=== PATIENT | female | born 1990 | race Caucasian/White ===

== ENCOUNTER → 2024-01-17 13:36 | Outpatient (REF) | payer OTHER, SELFPAY | LOC: REG 13:36 | PROVIDERS: ATTENDING PHYSICIAN Obstetrics & Gynecology | DX: Z34.82 Encounter for supervision of other normal pregnancy, second trimester (principal) | CPT/HCPCS: 36415; 86850; 86900; 86901; J2790 ==

== ENCOUNTER 2024-04-18 03:56 | Inpatient (IN) | payer OTHER, SELFPAY ==
[2024-04-18 04:04] VITALS: BMI 27.3
[2024-04-18 04:38] VITALS: BP 131/85; BMI 27.3
[2024-04-18 04:45] LABS: % Basophils 0.7 % (0-2); % Eosinophils 1.3 % (0-6); % Immature Granulocytes 0.2 % (0-0.5); % Lymphocytes 21.3 % (20.5-51.1); % Monocytes 7.8 % (1.7-9.3); % Neutrophils 68.7 % (42.2-75.2); Absolute Basophils 0.1 10^3/uL (0-0.2); Absolute Eosinophils 0.1 10^3/uL (0-0.7); Absolute Lymphocytes 2.3 10^3/uL (1.2-3.4); Absolute Monocytes 0.8 10^3/uL (0.1-0.6); Absolute Neutrophils 7.4 10^3/uL (1.4-6.5); Hematocrit 30.4 % (37.0-47.0); Hemoglobin 10.3 g/dL (12.0-16.0); Mean Corp Hgb Conc. 33.9 g/dL (33.0-37.0); Mean Corpuscular Hgb 26.8 pg (27.0-31.0); Mean Platelet Volume 9.9 fL (7.4-10.4); Nucleated Red Blood Cells % 0 %; Platelet Count 226 10^3/uL (130-400); Red Blood Cell Count 3.85 10^6/uL (4.20-5.40); Red Cell Dist. Width 12.5 % (11.5-14.5); White Blood Cell Count 10.7 10^3/uL (4.8-10.8)
[2024-04-18] MEDS: SUBLIMAZE 100 MCG EPIDURAL (04:57)
[2024-04-18] MEDS: FENTANYL/BUPIVACAINE 100 EPIDURAL (04:57)
[2024-04-18] MEDS: LR 1000 IV (05:28)
[2024-04-18] MEDS: PITOCIN 30 UNITS/NSS 500 ML IV (10:22)
[2024-04-18] MEDS: METHERGINE INJECTION 0.200000000000000011 MG IM (10:59)
[2024-04-18] MEDS: HEMABATE 250 MCG IM (11:16)
[2024-04-18] MEDS: ZOFRAN 4 MG IV (12:34)
[2024-04-18] MEDS: TYLENOL 650 MG PO (20:23)
[2024-04-18] MEDS: MOTRIN 600 MG PO (23:06)
[2024-04-19 03:32] LABS: Hematocrit 28.9 % (37.0-47.0); Hemoglobin 10.1 g/dL (12.0-16.0)
[2024-04-19] MEDS: MOTRIN 600 MG PO (06:25)
[2024-04-19] MEDS: PRENATAL PLUS 1 TABLET PO (08:04)
[2024-04-21 15:43] LABS: Syphilis/T. pallidum Ab Reflex Negative (Negative)
== END 2024-04-19 12:33 | disposition home or self-care (01) | DRG 807 ==
LOC: LDRP 03:56
PROVIDERS: Obstetrics & Gynecology; ADMITTING PHYSICIAN Obstetrics & Gynecology
PROC: 10E0XZZ Delivery of Products of Conception, External Approach (ICD-10-PCS; 2024-04-18)
PROC: 0UQMXZZ Repair Vulva, External Approach (ICD-10-PCS; 2024-04-18)
DX: O48.0 Post-term pregnancy (principal); Z37.0 Single live birth; Z3A.40 40 weeks gestation of pregnancy; O70.0 First degree perineal laceration during delivery
CPT/HCPCS: 88307; 36415; 85014; 85018; 85025; 86780; 86850; 86870; 86900; 86901

== ENCOUNTER 2024-11-04 09:04 | Emergency (ER) | payer OTHER, SELFPAY ==
[2024-11-04 09:12] VITALS: BP 123/92
--- NOTE | 2024-11-04 09:39 | ED.GENMED ---
History of Present Illness
General
Chief Complaint: Headache
Source: patient
Exam Limitations: none
Time Seen by Provider: 11/04/24 09:20
Nursing documentation reviewed up to this point in time: agreed with
History of Present Illness
History of Present Illness:
34 yo female here for headaches, tingling/weakness LUE. States 10/19 developed fleeting shooting pains upper left scalp few times a day that left residual pressure top of head. Some relief with Advil. Had some lightheadedness intermittently the
week before headaches started. Symptoms off and on for a week, saw PCP [employer] and had out pt labs (has results with her).
Had no symptoms for 3 days then 3 days ago had 1-2 fleeting shooting pains with lingering head pressure and yesterday more frequent, more intense, now across top of head.
This a.m. left hand felt 'tingly' and when she went to lift her coffee cup left forearm felt 'weak.' These symptoms are there now.
She is in process of weaning her 7 month old.
[place] she may be dehydrated has been drinking plenty and taking electrolyte packets at times.
Denies N/V/D/C. Denies change in vision. Denies any recent injury. Denies neck pain.
Past History
Past History
ED Past Medical History: None
ED Past Surgical History: None
Social History
Tobacco: Non-smoker
Alcohol: Occasional
Personal:
Living: with family
Employment: Not employed
Review of Systems
Review of Systems
Allergies reviewed?: Yes
All Other Systems: ROS reviewed and negative except as documented in HPI and ROS
Constitutional: Denies fever or fatigue
Respiratory: Denies trouble breathing
Cardiac: Denies chest pain
ABD/GI: Denies abdominal pain, nausea, vomiting, diarrhea or anorexia
: Denies dysuria or difficulty voiding
Musculoskeletal: Reports no symptoms
Skin: Reports no symptoms
Neurological: Reports headache and other (left hand and forearm tingling and weakness); Denies dizzy
Phy Exam
Physical Exam
Physical Exam:
GENERAL: No acute distress. A&Ox3.
CONSTITUTIONAL: Afebrile.
HEAD: no facial pain to percussion, temples non tender, scalp nontender
EYES: PERRL, conjunctivae normal
Neck: Supple, nontender
ENMT: moist mucus membranes, Pharynx nl, TMs normal
RESPIRATORY: Regular respirations, nonlabored, lungs clear.
CARDIOVASCULAR: Regular rate and rhythm, no murmurs, no rubs.
GI: Soft, nontender, normal BS
MUSCULOSKELETAL: Moves with ease. Well perfused. Well perfused.
SKIN: Warm, dry, pink
PSYCH: Normal mood and affect. Well kept, interactive and appropriate
NEUROLOGIC: Awake, alert and oriented. No focal neurological deficits. CN 2-12 intact. Strength 5/5 throughout. Sensation intact all areas of face and scalp.
Course
Orders/Labs/Results
Orders:
Orders
11/04/24 09:16
Test Result ONCE
11/04/24 09:39
CT Head W/o Iv Contrast Urgent
Comment:
Reason For Exam: h/a left hand, forearm tingling
11/04/24 09:44
Ferritin Urgent
HCG, Serum Qualitative Screen Urgent
Vitamin B12 Urgent
Vitamin D, 25-OH Urgent
11/04/24 10:23
0.9% Sodium Chloride 500 ml [Nss] 500 ml IV BOLUS
Abnormal Lab Results
11/04/24
09:44
Vitamin D 25-Hydroxy 29.8 L ng/mL
(30-80)
11/04/24 09:16
11/04/24 09:16
Vital Signs
Initial and Last Documented VS:
Initial Vital Signs
Temp Pulse Resp BP Pulse Ox
98.2 F 81 16 123/92 98
11/04/24 09:12 11/04/24 09:12 11/04/24 09:12 11/04/24 09:12 11/04/24 09:12
Last Documented Vital Signs
Temp Pulse Resp BP Pulse Ox
98.2 F 71 16 121/73 98
11/04/24 09:12 11/04/24 11:19 11/04/24 11:19 11/04/24 11:19 11/04/24 11:19
MDM/Problems Addressed
Differential Diagnosis Includes:
cephalgia, cervical radiculopathy, trigeminal neuralgia
MDM/Problems Addressed:
34 yo female here for headaches, tingling/weakness LUE. States 10/19 developed fleeting shooting pains upper left scalp few times a day that left residual pressure top of head. Some relief with Advil. Had some lightheadedness intermittently the
week before headaches started. Symptoms off and on for a week, saw PCP [employer] and had out pt labs (has results with her).
Had no symptoms for 3 days then 3 days ago had 1-2 fleeting shooting pains with lingering head pressure and yesterday more frequent, more intense, now across top of head.
This a.m. left hand felt 'tingly' and when she went to lift her coffee cup left forearm felt 'weak.' These symptoms are there now.
She is in process of weaning her 7 month old.
[place] she may be dehydrated has been drinking plenty and taking electrolyte packets at times.
Denies N/V/D/C. Denies change in vision. Denies any recent injury. Denies neck pain.
Afebrile, NAD
Normal neuro exam. All cranial nn intact
PE unremarkable with subjective tingly feeling left hand and wrist, weak feeling left forearm. Strength equal throughout
Has been occurring too long to be prodrome of zoster
CMP, Mg++, CRP from out pt [facility] labs reviewed on her phone, no abnormalities, no need to repeat
Head CT normal
Ferritin, Vit B12, Vitamin D WNL
Pt reassured
Most likely left arm cervical radiculopathy
Rx for Prednisone 40 mg daily for 3 days sent to her pharmacy
Referred to Neuro if needed.
*Critical Care Note
Total Time (30-74mins, 75-104mins- exclusive of procedures): Not Applicable
ED Attending Note
-
Portions of this chart may have been created with voice recognition software.� Occasional wrong word or��sound alike� substitutions may have occurred due to the inherent limitations of voice recognition software.
Discharge Plan
Departure
Patient Disposition: Home (Routine Discharge)
Date of Disposition: 11/04/24
Time of Disposition: 11:06
Patient with high blood pressure during this ER visit?: No
Condition: Good
Discharge Problem:
Headache, Radiculopathy of arm
Instructions: Radiculopathy (DC), Headache, Adult ED
Prescriptions:
New
prednisone 20 mg tablet
40 mg PO DAILY Qty: 6 0RF
No Action
PNV cmb#95-ferrous fumarate-FA [] 1 EACH tablet
1 ea PO DAILY
ibuprofen 600 mg Tablet
600 mg PO Q6HPRN PRN (Reason: moderate pain/cramps) Qty: 0 0RF
Referrals:
Your, Primary provider [Other] - As needed
Joanne Dior MD [Active] - Next open appointment
UNKNOWN - PT DOES,NOT KNOW [Family Provider] -
Activity Restrictions/Additional Instructions:
As we discussed, your head CT is normal.
Your left arm symptoms may be originating in your neck (pinched or inflamed nerve)
I see nothing alarming in your exam.
Continue Ibuprofen 600 mg every 6 hours as needed since it seemed to have helped some.
I sent a prescription to your pharmacy for Prednisone 40 mg daily for 3 days to see if it helps both the head pain and the left arm symptoms.
See your primary care provider if symptoms persist beyond another 10 days.
Seek medical care immediately if symptoms worsen or you feel worse in any way.
I have provided you with the contact information for Neurology if your provider thinks you need neurology evaluation
Interventions
Interventions:
*Risk Screen - Suicide Last Done: 11/04/24 09:12
*General Assessment Last Done: 11/04/24 09:51
*Neglect/Abuse Screening Last Done: 11/04/24 09:12
ED- Fall Risk Assessment Last Done: 11/04/24 09:51
*Nursing Disposition Last Done: 11/04/24 11:21
ED- Neurological Assessment Last Done: 11/04/24 09:51
Discharge Date and Time
Discharge Date/Time: 11/04/24 11:23
Print Language: NEPALESE
[2024-11-04 10:12] LABS: HCG, Serum Qualitative Screen Negative
[2024-11-04 10:38] LABS: Vitamin D, 25-OH*** 29.8 ng/mL (30-80)
[2024-11-04 10:56] LABS: Ferritin 12.8 ng/ml (6.24-137)
[2024-11-04 11:12] LABS: Vitamin B12 783 pg/ml (239-931)
[2024-11-04 11:19] VITALS: BP 121/73
== END 2024-11-04 11:23 | disposition home or self-care (01) ==
LOC: EMR 09:04
PROVIDERS: Emergency Medicine; Registered Nurse; EMERGENCY PHYSICIAN Student in an Organized Health Care Education/Training Program
DX: R51.9 Headache, unspecified (principal); M54.12 Radiculopathy, cervical region
CPT/HCPCS: 99284; 70450; 82306; 82607; 82728; 84703